=== PATIENT | male | born 1985 | race Caucasian/White ===

== ENCOUNTER 2019-01-02 16:36 | Emergency (ER) | payer SELFPAY ==
[~2019-01-02] VITALS: Ht 182.9 cm; Wt 108.9 kg
[~2019-01-02 16:36] MED LIST: CHLO4LIQ EX; CLIN300C2 PO; SULF1TAB60 PO; TRAM50TA2 PO
[2019-01-02 18:30] VITALS: BP 139/97
[2019-01-02] MEDS ORDERED: cefTRIAXone SOD 1,000 MG VL IM ONE (19:00)
[2019-01-02] MEDS ORDERED: DexAMETHasone SOD PHOS 10MG/1ML VIAL INJ IM ONE (19:00)
[2019-01-02] MEDS ORDERED: ACETAMINOPHEN/CODEINE#3 (300/30mg) TAB PO ONE (19:00)
== END 2019-01-02 19:29 | disposition home or self-care (01) ==
LOC: ER 16:36
DX: J06.9 Acute upper respiratory infection, unspecified (principal)
CPT/HCPCS: 96372; 99283; J0696; J1100